=== PATIENT | female | born 1995 | race Caucasian/White ===

== ENCOUNTER 2019-12-31 07:44 | Outpatient (CLI) | payer OTHER, SELFPAY ==
--- NOTE | ~2019-12-31 | NM_ITS ---
EXAMINATION: NM hepatobiliary w pharm DATE: 12/31/2019 10:08 INDICATION: Abnormal findings on diagnostic imaging of the liver/biliary tract. COMPARISON: None. TECHNIQUE: 5 mCi Tc-99m mebrofenin (Choletec) was administered intravenously. Scintigraphic images o f the abdomen were obtained for one hour. 1.0 mcg sincalide (Kinevac) was administered by slow intrav enous infusion, and imaging was continued for 30 minutes. Gallbladder ejection fraction was calculate d by the technologist. FINDINGS: There is normal clearance of radiotracer from the blood pool. There is homogeneous tracer uptake by t he liver. Activity progresses to the gallbladder and bowel. The gallbladder ejection fraction (GBEF) is 34% (normal 10-90%, but most patient with gallbladder dysfunction have GBEF < 35% which does over lap with the normal range). IMPRESSION: 1. Gallbladder ejection fraction is at the lower limits of normal. This is likely normal but is als o just within the range of overlap with gallbladder dysfunction or chronic cholecystitis in the appro priate clinical setting. Reviewed, dictated and finalized at location A. IMPRESSION: 1. Gallbladder ejection fraction is at the lower limits of normal. This is li leydi normal but is also just within the range of overlap with gallbladder dysfu nction or chronic cholecystitis in the appropriate clinical setting.
== END 2019-12-31 07:45 | disposition home or self-care (01) ==
LOC: ANHIMG 07:47
DX: R93.2 Abnormal findings on diagnostic imaging of liver and biliary tract (principal)
CPT/HCPCS: 78227; A9537; J2805